=== PATIENT | male | born 1965 | race Caucasian/White ===

== ENCOUNTER 2018-01-11 10:12 | Emergency (ER) | payer SELFPAY ==
[~2018-01-11] VITALS: Ht 170.2 cm; Wt 85.9 kg
[2018-01-11 10:23] VITALS: BP 115/76
--- NOTE | 2018-01-11 10:27 | NUR ---
Patient ambulated to bed 11. RN evaluating patient at bedside.
--- NOTE | 2018-01-11 10:27 | NUR ---
PT AMBULATES TO BED 11
--- NOTE | 2018-01-11 10:30 | NUR ---
PT COMES TO ED C/O COUGH WITH WHITE SPUTUM FOR 1 WEEK, DENIES FEVER N/V/SOB. PT VS WNL. PT STATES HE RECENTLY QUIT DRINKING ALCOHOL 4 MONTHS AGO AND HAS BEEN HAVING MUSCLE CRAMPS INTERMITTENLY. DR LESTER AT BEDSIDE TO [facility]OLOR[facility]
[2018-01-11 11:25] VITALS: BP 122/74
--- NOTE | 2018-01-11 11:26 | NUR ---
Patient discharged with v/s stable. Written and verbal after care instructions given and explained. Patient alert, oriented and verbalized understanding of instructions. Ambulatory with steady gait. All questions addressed prior to discharge. ID band removed. Patient advised to follow up with PMD. Rx of PROMETHAZINE given. Patient educated on indication of medication including possible reaction and side effects. Opportunity to ask questions provided and answered.
== END 2018-01-11 11:26 | disposition home or self-care (01) ==
LOC: MED 10:12
DX: J06.9 Acute upper respiratory infection, unspecified (principal)
CPT/HCPCS: 71045; 99283; Q0092